=== PATIENT | male | born 1970 | race Caucasian/White ===

== ENCOUNTER 2017-01-01 18:20 | Emergency (ER) | payer SELFPAY ==
--- NOTE | 2017-01-01 19:12 | UC ---
Head Injury HPI - HPI Summary HPI Summary: The patient comes in today for: 1. Fall and head injury: Onset: 9 hours ago. Palliative/provocative: Nothing makes the pain better or worse. He took four Advil which helped. Quality: Ache Region: Right shoulder, right clavicle and back of the head and neck. Severity: 5/10 Time: Constant. Associated symptoms: Event: He was on a ladder (15-16 feet) leaning against the house. The bottom feet slid on the driveway. When the sliding feet hit the grass, the ladder suddenly stopped and he hit the ladder. When he hit the ladder, it gave away and he hit it again when the ladder hit the ground. He was facing the ladder. No LOC. The workers stated that he "looked dazed" and one said that " he could not understand me." He went right back to work. He states right after the fall, he had pain. He does not know how he got a bump on the back on his head which he thinks that he got when he rolled over off the ladder. He has pain of the right clavicle, right shoulder, headache, and neck. He denies any numbness or heaviness. 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 - Allergies/Home Medications Allergies/Adverse Reactions: Allergies Allergy/AdvReac Type Severity Reaction Status Date / Time No Known Allergies Allergy Verified 01/01/17 18:56 Home Medications: Home Medications Ibuprofen TAB* [Advil TAB*] 800 mg PO PRN 01/01/17 [History] Omeprazole CAP* [Prilosec CAP* 20 MG] 01/01/17 [History] PMH/Surg Hx/FS Hx/Imm Hx Previously Healthy: Yes Endocrine History Of: Denies: Diabetes, Thyroid Disease, Hyperthyroidism, Hypothyroidism, Dyslipidemia Cardiovascular History Of: Denies: Cardiac Disorders, Hypertension, Pacemaker/ICD, Myocardial Infarction , Congestive Heart Failure, Atrial Fibrillation, Deep Vein Thrombosis, Bleeding Disorders Respiratory History Of: Denies: COPD, Asthma, Bronchitis, Pneumonia, Pulmonary Embolism GI/ History Of: Denies: Gastroesophageal Reflux, Ulcer, Gastrointestinal Bleed, Gall Bladder Disease, Kidney Stones, Diverticulitis, Renal Disease, Urosepsis Neurological History Of: Denies: TIA, CVA, Dementia, Seizures, Migraine Psychological History Of: Denies: Anxiety, Depression, Bipolar Disorder, Schizophrenia, Post Traumatic Stress Disorder Cancer History Of: Denies: Lung Cancer, Colorectal Cancer, Breast Cancer, Prostate Cancer, Cervical Cancer Other History Of: Negative For: HIV, Hepatitis B, Hepatitis C, Anticoagulant Therapy - Surgical History Surgical History: Yes Surgery Procedure, Year, and Place: skin graft to abdomen - Family History Known Family History: Positive: Cardiac Disease, Hypertension - Social History Occupation: Employed Full-time Lives: With Family Alcohol Use: Occasionally Alcohol Amount: 2/DAY Substance Use Type: None Smoking Status (MU): Current Every Day Smoker Type: Cigarettes Amount Used/How Often: 1PPD Length of Time of Smoking/Using Tobacco: 20+ years Review of Systems Constitutional: Negative Skin: Negative Eyes: Negative ENT: Negative Respiratory: Negative Cardiovascular: Negative Gastrointestinal: Negative Genitourinary: Negative Motor: Negative Musculoskeletal: Arthralgia All Other Systems Reviewed And Are Negative: Yes Physical Exam Triage Information Reviewed: Yes Appearance: Well-Appearing, No Pain Distress - He has no psychomotor slowing or guarding., Well-Nourished Vital Signs: Initial Vital Signs Temp 97.3 F 01/01/17 18:46 Pulse 60 01/01/17 18:46 Resp 16 01/01/17 18:46 BP 119/82 01/01/17 18:46 Pulse Ox 98 01/01/17 18:46 Vital Signs Reviewed: Yes Eyes: Positive: Conjunctiva Clear. Negative: Discharge ENT: Positive: Hearing grossly normal. Negative: Pharyngeal erythema, Nasal congestion, Nasal drainage, TM bulging, TM dull, TM red, Tonsillar swelling, Tonsillar exudate Dental: Negative: Gross Decay/Caries @, Dental Fracture @ Neck: Positive: Supple, No Lymphadenopathy. Negative: Nontender - There is tenderness of the midline posterior cervical spine. There is tenderness to palpation of the right paraspinous musculature., Nuchal Rigidity Respiratory: Positive: Lungs clear, No respiratory distress, No accessory muscle use. Negative: Chest non-tender - There is tenderness over the right clavicle, but no ecchymoosis or hematoma or misalignment. There is tenderness to palpation., Crackles, Wheezing Cardiovascular: Positive: RRR, No Murmur Abdomen Description: Positive: Nontender, No Organomegaly, Soft. Negative: Distended, Guarding Musculoskeletal: Positive: Strength Intact, ROM Intact, No Edema Neurological: Positive: Alert, Muscle Tone Normal, Other: - Neurologic exam: INspection: no fasciculations Tone: no rigidity Strength: Symmetrical and appropriate for age for upper extremity (biceps, triceps, in house counsel, deltoid) and lower extremity (hamstring, quadriceps, plantar and dorsiflexion, adduction, and abduction. CN I-XII intact DTR: biceps, triceps brachioradialis, patellar, and Achilles 2+/2 x 2. Rhomberg: NOrmal Gait: both regular and heel to toe: normal Coordination: finger to nose, patting thighs, alternating patting of thighs, and heel along turner--all normal. Psychological: Positive: Normal Response To Family, Age Appropriate Behavior, Consolable Skin: Positive: rashes - He has an ecchymotic area on the back of his head. No hematoma or marked tenderness to palpation. Diagnostics - Radiology No standard instances Xray Interpretation: No Acute Changes Radiology Interpretation Completed By: Radiologist - CT head, CT c-spine, right shoulder and right clavicle--all normal. Head Injury Course/Dx - Differential Dx/Diagnosis Provider Diagnoses: Contusion, head,. Right shoulder strain. Neck strain. Discharge - Discharge Plan Condition: Stable Disposition: HOME Patient Education Materials: Contusion in Adults (ED) Referrals: No Primary Care Phys,NOPCP [Primary Care Provider] - 1 Week (Please follow up with your primary care provider in a week to see how well you are doing. If you don't have a primary care provider, please use the physician referral line. If you are not able to get in timely, you can come back to see us.) Additional Instructions: Use [id number] ibuprofen as needed for pain (200 to 800 mg up to four times a day).
--- NOTE | 2017-01-01 20:03 | RAD ---
Indication: RIGHT shoulder and clavicle pain with decreased range of motion post fall from ladder. Comparison: None. Technique: Internal rotation AP, external rotation Grashey, scapular Y, axillary views RIGHT shoulder. AP and cephalad oblique views of the RIGHT clavicle. Report: Normal alignment at the acromioclavicular, glenohumeral, and sternoclavicular joints. No cortical disruption or suspicious trabecular irregularity to suggest fracture. Mild osteophytosis at the acromioclavicular joint. Mild soft tissue swelling over the dorsum of the RIGHT shoulder and clavicle. No rib fracture or RIGHT pneumothorax within the [id number]. IMPRESSION: Mild soft tissue swelling over the dorsum of the shoulder and clavicle without evidence for fracture or articular malalignment.
--- NOTE | 2017-01-01 20:03 | RAD ---
Indication: RIGHT shoulder and clavicle pain with decreased range of motion post fall from ladder. Comparison: None. Technique: Internal rotation AP, external rotation Grashey, scapular Y, axillary views RIGHT shoulder. AP and cephalad oblique views of the RIGHT clavicle. Report: Normal alignment at the acromioclavicular, glenohumeral, and sternoclavicular joints. No cortical disruption or suspicious trabecular irregularity to suggest fracture. Mild osteophytosis at the acromioclavicular joint. Mild soft tissue swelling over the dorsum of the RIGHT shoulder and clavicle. No rib fracture or RIGHT pneumothorax within the [id number]. IMPRESSION: Mild soft tissue swelling over the dorsum of the shoulder and clavicle without evidence for fracture or articular malalignment.
--- NOTE | 2017-01-01 20:08 | RAD ---
Indication: Head injury and neck pain post fall from ladder. Comparison: No relevant prior exams available on the [facility]. Technique: Noncontrast CT vertex of skull through foramen magnum. Report: The sulci, ventricles, and basal cisterns are normal for age. Sen matter white matter differentiation is preserved without evidence for edema. No intra or extra axial hemorrhage is detected. Calcification of the pineal gland and choroid plexus noted without concern. Unremarkable orbital contents. Negative for calvarial or skull base fracture. Negative for scalp hematoma. The visualized paranasal sinuses and mastoid air spaces are clear. IMPRESSION: No evidence for traumatic brain injury. Negative unenhanced head CT.
--- NOTE | 2017-01-01 20:15 | RAD ---
INDICATION: Neck pain post fall from ladder. COMPARISON: None. TECHNIQUE: Multidetector CT images foramen magnum to lung apices without contrast. Multiplanar reformation. REPORT: Negative for vertebral body or posterior element fracture at any level. Negative for facet subluxation. Negative for paravertebral hematoma. At C6-C7 there is moderately severe disc space narrowing and mild dorsal disc osteophyte complex without significant resulting central canal stenosis. Uncinate process spurring and facet joint osteoarthritis noted without significant resulting foraminal stenosis. IMPRESSION: No CT evidence for traumatic injury of the cervical spine.
[2017-01-01 20:43] VITALS: BP 131/81
== END 2017-01-01 20:45 | disposition home or self-care (01) ==
LOC: UCEAST 18:20
DX: S00.03XA Contusion of scalp, initial encounter (principal); S46.911A Strain of unspecified muscle, fascia and tendon at shoulder and upper arm level, right arm, initial encounter; S16.1XXA Strain of muscle, fascia and tendon at neck level, initial encounter; W11.XXXA Fall on and from ladder, initial encounter; Y93.89 Activity, other specified; Y92.89 Other specified places as the place of occurrence of the external cause; Y99.0 Civilian activity done for income or pay; F17.210 Nicotine dependence, cigarettes, uncomplicated
CPT/HCPCS: 70450; 72125; 99213; G0463

== ENCOUNTER 2017-09-11 10:34 | Emergency (ER) | payer BC ==
[2017-09-11 11:03] VITALS: BP 146/86
--- NOTE | 2017-09-11 11:34 | UC ---
Skin Complaint HPI - History of Current Complaint Chief Complaint: UCUpperExtremity Time Seen by Provider: 09/11/17 11:28 Stated Complaint: HAND INJURY Hx Obtained From: Patient Onset/Duration: Sudden Onset - 2-3 weeks ago was striking metal hatchet with a metal anvil and felt something hit R hand. saw small wound with some bleeding. over course of 2-3 weeks swelling and pus drainage has occured. Onset Severity: Moderate Current Severity: Mild Aggravating Factor(s): Touch Alleviating Factor(s): Nothing Associated Signs & Symptoms: Positive: Tenderness. Negative: Red Streaks - Allergy/Home Medications Allergies/Adverse Reactions: Allergies Allergy/AdvReac Type Severity Reaction Status Date / Time No Known Allergies Allergy Verified 01/01/17 18:56 Home Medications: Home Medications Multiple Vitamin [Multivitamins] 1 cap PO 09/11/17 [History] Review of Systems Constitutional: Negative Skin: Other - R hand swelling Respiratory: Negative Cardiovascular: Negative Musculoskeletal: Negative Neurological: Negative Psychological: Negative Is Patient Immunocompromised?: No All Other Systems Reviewed And Are Negative: Yes PMH/Surg Hx/FS Hx/Imm Hx Previously Healthy: Yes Other History Of: Negative For: HIV, Hepatitis B, Hepatitis C, Anticoagulant Therapy - Surgical History Surgical History: Yes Surgery Procedure, Year, and Place: skin graft to abdomen - Family History Known Family History: Positive: Cardiac Disease, Hypertension - Social History Occupation: Employed Full-time Lives: With Family Alcohol Use: Weekly Alcohol Amount: 2/DAY Substance Use Type: None Smoking Status (MU): Heavy Every Day Tobacco Smoker Type: Cigarettes Amount Used/How Often: 1PPD Length of Time of Smoking/Using Tobacco: 20+ years Cessation Counseling: Patient Advised to Stop - Immunization History Most Recent Tetanus Shot: 3 years ago Vaccination Up to Date: Yes Physical Exam Triage Information Reviewed: Yes Appearance: Well-Appearing, No Pain Distress, Well-Nourished Vital Signs: Initial Vital Signs Temp 98.9 F 09/11/17 10:58 Pulse 69 09/11/17 10:58 Resp 18 09/11/17 10:58 BP 146/86 09/11/17 10:58 Pulse Ox 100 09/11/17 10:58 Vital Signs Reviewed: Yes Eye Exam: Normal Respiratory Exam: Normal Cardiovascular Exam: Normal Psychological Exam: Normal Skin: Positive: Other - R 2nd MCP joint swollen, closed , tender mass, no streaking or redness Diagnostics - Radiology hand xray Xray Interpretation: Positive (See Comments) Course/Dx - Course Course Of Treatment: R hand F.O. site: cleansed with betadine dhruv. inj with lidocaine 1% for local anesthesia. inc made with #11 blade, black, flat metal FO removed with forceps, wound irrigated with betadine and NSS , sterile dressing applied - Differential Diagnoses - Skin Complaint Differential Diagnoses: Abscess, Cellulitis, Foreign Body - Diagnoses Provider Diagnoses: FO R hand-removed Discharge - Discharge Plan Condition: Good Disposition: HOME Patient Education Materials: Acute Wound Care (ED) Referrals: No Primary Care Phys,NOPCP [Primary Care Provider] - Additional Instructions: keep wound clean and dry report redness, drainage, fever or chills Ibuprofen for pain as directed
[2017-09-11] MEDS ORDERED: Lidocaine 1% MPF* 2 ML VIAL ONE (11:58)
--- NOTE | 2017-09-11 12:01 | RAD ---
HISTORY: Penetrating trauma COMPARISONS: None VIEWS: 4, Frontal, lateral, and oblique views of the left hand FINDINGS: BONE DENSITY: Normal. BONES: There is no displaced fracture. JOINTS: There is no arthropathy. ALIGNMENT: There is no dislocation. SOFT TISSUES: There is an approximately 0.6 cm radiopaque foreign body within the soft tissues along the lateral aspect (radial aspect) of the second MCP joint. OTHER FINDINGS: None. IMPRESSION: RADIOPAQUE FOREIGN BODY IN THE SOFT TISSUES ALONG THE SECOND MCP JOINT. NO ACUTE OSSEOUS INJURY. IF SYMPTOMS PERSIST, RECOMMEND REPEAT IMAGING.
== END 2017-09-11 12:28 | disposition home or self-care (01) ==
LOC: UCEAST 10:34
DX: S61.441A Puncture wound with foreign body of right hand, initial encounter (principal); X58.XXXA Exposure to other specified factors, initial encounter; Y93.89 Activity, other specified; Y92.9 Unspecified place or not applicable; F17.210 Nicotine dependence, cigarettes, uncomplicated
CPT/HCPCS: 10120; 99211; G0463

== ENCOUNTER 2018-03-07 14:03 | Emergency (ER) | payer BC ==
[2018-03-07 14:17] VITALS: BP 108/72
--- NOTE | 2018-03-07 14:44 | UC ---
Respiratory Complaint HPI - HPI Summary HPI Summary: This is chip Ricci documenting for attending Yoav Kraus MD. This patient is a 47 year old M presenting to [facility] with a chief complaint of cough that began approximately 1 week ago. The patient rates the pain 2/10 in severity. Symptoms aggravated by nothing. Symptoms alleviated by nothing. Patient reports sore throat, fever, chills, and general myalgias. - History of Current Complaint Chief Complaint: UCRespiratory Stated Complaint: COUGH Time Seen by Provider: 03/07/18 14:19 Hx Obtained From: Patient Onset/Duration: Sudden Onset, Lasting Weeks, Still Present Timing: Constant Severity Initially: Mild Severity Currently: Mild Pain Intensity: 2 Pain Scale Used: 0-10 Numeric Aggravating Factors: Nothing Alleviating Factors: Nothing Associated Signs And Symptoms: Positive: Fever, Chills - Allergies/Home Medications Allergies/Adverse Reactions: Allergies Allergy/AdvReac Type Severity Reaction Status Date / Time No Known Allergies Allergy Verified 01/01/17 18:56 PMH/Surg Hx/FS Hx/Imm Hx Previously Healthy: Yes Endocrine History: Other Other Endocrine History: Negative diabetes Cardiovascular History: Other Other Cardiovascular History: Negative HTN Other History Of: Negative For: HIV, Hepatitis B, Hepatitis C, Anticoagulant Therapy - Surgical History Surgical History: Yes Surgery Procedure, Year, and Place: skin graft to abdomen - Family History Known Family History: Positive: Cardiac Disease, Hypertension - Social History Occupation: Employed Full-time Lives: With Family Alcohol Use: Daily Alcohol Amount: 2/DAY Substance Use Type: None Smoking Status (MU): Heavy Every Day Tobacco Smoker Type: Cigarettes Amount Used/How Often: 1PPD Length of Time of Smoking/Using Tobacco: 20+ years - Immunization History Most Recent Tetanus Shot: 3 years ago Vaccination Up to Date: Yes Review of Systems Constitutional: Fever, Chills Respiratory: Cough Musculoskeletal: Myalgia All Other Systems Reviewed And Are Negative: Yes Physical Exam - Summary Physical Exam Summary: VITAL SIGNS: Reviewed. GENERAL: Patient is a well-developed and nourished male who is lying comfortable in the stretcher. Patient is not in any acute respiratory distress. HEAD AND FACE: Normocephalic EYES: PERRLA, EOMI x 2. EARS: Hearing grossly intact. MOUTH: Oropharynx within normal limits. NECK: Supple, trachea is midline, no adenopathy, no JVD, no carotid bruit. CHEST: Symmetric, no tenderness at palpation LUNGS: Clear to auscultation bilaterally. No wheezing or crackles. CVS: Regular rate and rhythm, S1 and S2 present, no murmurs or gallops appreciated. ABDOMEN: Soft, non-tender. Bowel sounds are normal. No abdominal abnormal pulsations. EXTREMITIES: Full ROM in all major joints, no edema, no cyanosis or clubbing. NEURO: Alert and oriented x 3. No acute neurological deficits. Speech is normal and follows commands. SKIN: Dry and warm Triage Information Reviewed: Yes Vital Signs: Initial Vital Signs Temp 98 F 03/07/18 14:14 Pulse 71 03/07/18 14:14 Resp 16 03/07/18 14:14 BP 108/72 03/07/18 14:14 Pulse Ox 100 03/07/18 14:14 Vital Signs Reviewed: Yes Diagnostic Evaluation - Laboratory O2 Sat by Pulse Oximetry: 100 - Radiology Radiology Interpretation Completed By: Radiologist - CXR reveals, per radiologist, old right-sided rib fractures. No active disease. Physician has reviewed this radiology report. Respiratory Course/Dx - Course Course Of Treatment: 47-year-old male presents to the urgent care with a chief complaint of productive cough. Chest x-ray impression: No acute pathology. Rapid strep is negative. Prevotii the patient is having bronchitis only seems to be viral. Therefore the patient was asked to increase his fluid intake and take [id number] antitussives and follow with the primary care physician. He is to return to the urgent care or the emergency department if develops any worsening symptoms, fever or chills, or any other symptoms. Patient understands and agrees. Patient is hemodynamically stable alert and oriented 3. - Differential Dx/Diagnosis Provider Diagnoses: Bronchitis Discharge - Sign-Out/Discharge Documenting (check all that apply): Patient Departure - Discharge Plan Condition: Stable Disposition: HOME Patient Education Materials: Acute Bronchitis (ED) Referrals: [facility] [place] [facility] REFERRAL [Outside] No Primary Care Phys,NOPCP [Primary Care Provider] - Additional Instructions: Take medications as instructed and adhere to plan Take Acetaminophen or ibuprofen for pain or fever Increase your fluid intake Return to the or go to the emergency department if symptoms worsen Follow-up with primary care physician in next 2-3 days - Billing Disposition and Condition Condition: STABLE Disposition: Home
--- NOTE | 2018-03-07 14:48 | RAD ---
INDICATION: Cough COMPARISON: None TECHNIQUE: PA and lateral dual-energy views were obtained. FINDINGS: Bones/Soft Tissues: There are no acute bony findings. There are old, displaced, right fourth through sixth rib fractures. Cardiomediastinal: The cardiomediastinal silhouette is normal. Lungs: There are no infiltrates. Pleura: There are no pleural effusions. Other: None IMPRESSION: OLD RIGHT-SIDED RIB FRACTURES. NO ACTIVE DISEASE
== END 2018-03-07 15:34 | disposition home or self-care (01) ==
LOC: UCEAST 14:03
DX: J40 Bronchitis, not specified as acute or chronic (principal); F17.210 Nicotine dependence, cigarettes, uncomplicated
CPT/HCPCS: 71046; 87651; 99211; G0463